=== PATIENT | female | born 1960 | race Caucasian/White ===

== ENCOUNTER 2019-08-12 17:00 | Emergency (ER) | payer OTHER ==
--- NOTE | 2019-08-12 17:23 | PDOC ---
History of Present Illness - General Chief Complaint: Lightheaded Stated Complaint: DIZZY EPISODE Time Seen by Provider: 08/12/19 17:23 History Source: Patient Exam Limitations: No Limitations - History of Present Illness Initial Comments: 08/12/19 18:01 59yF w PMHx low BP (100/60), palpitations presenting w sudden onset cold sweats , lightheaded, tunnel vision, heart palpitations while driving on highway towards [place] at 250pm today. Pulled over to side of road w symptom resolved , had 2nd presyncope episode short while after. Ate jen bar and drank water before presenting to ED. Also ran 6mi earlier today without drinking water. Never had these symptoms before. Has intermittent palpitations for past 8mo, scheduled stress test next week. Denies life stressors, LOC, head trauma, chest pain, SOB, n/v, headache. Past History - Past Medical History Allergies/Adverse Reactions: Allergies Allergy/AdvReac Type Severity Reaction Status Date / Time No Known Allergies Allergy Verified 08/12/19 17:19 Home Medications: Ambulatory Orders Cholecalciferol (Vitamin D3) [Vitamin D3] 2,000 unit PO DAILY 08/12/19 Cyanocobalamin [Vitamin B12 -] 1,000 mcg PO DAILY 08/12/19 Estrogens, Conjugated [Premarin] 0.3 mg PO DAILY 08/12/19 Fluoxetine HCl [Prozac] 20 mg PO DAILY 08/12/19 Progesterone, Micronized [Progesterone] 100 mg PO ASDIR 08/12/19 Sumatriptan Succinate 100 mg PO DAILY PRN 08/12/19 Review of Systems - Review of Systems Constitutional: No: Fever, Malaise HEENTM: Yes: Recent change in vision. No: Eye Pain Respiratory: No: Cough, Shortness of Breath Cardiac (ROS): Yes: Palpitations. No: Chest Pain ABD/GI: No: Abdominal Distended, Constipated, Diarrhea, Nausea, Vomiting : No: Burning, Dysuria Musculoskeletal: No: Back Pain, Joint Pain Integumentary: No: Bruising, Flushing Neurological: No: Headache, Numbness, Seizure Psychiatric: No: Anxiety, Depression Endocrine: No: Intolerance to Cold, Intolerance to Heat Hematologic/Lymphatic: No: Anemia, Blood Clots *Physical Exam - Physical Exam General Appearance: Yes: Nourished, Appropriately Dressed. No: Apparent Distress HEENT: positive: EOMI, JAIME, Normal Voice, Hearing Grossly Normal. negative: Scleral Icterus (R), Scleral Icterus (L) Respiratory/Chest: positive: Lungs Clear, Normal Breath Sounds. negative: Chest Tender, Respiratory Distress Cardiovascular: positive: Regular Rhythm, S1, S2, Bradycardia. 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 negative: Abnormal Cranial NS, Facial Droop, Numbness, Confused, Disoriented Medical Decision Making - Medical Decision Making 08/12/19 18:04 CXR clear lung hardin EKG sinus bradycardia, HR 49, QTc 449, TWI V1 --- 59yF w PMHx low BP (100/60), palpitations presenting w sudden onset cold sweats , lightheaded, tunnel vision, heart palpitations d/t vasovagal syncope (vagal symptoms) and dehydration. Low concern for hypoglycemia vs cardiogenic (no cardiac risk factors) Given 1L NS DC home w cards f/u pending labs Signed out to night team Discharge - Discharge Information Problems reviewed: Yes Clinical Impression/Diagnosis: Vasovagal syncope Condition: Improved Disposition: HOME - Admission No - Follow up/Referral - Patient Discharge Instructions Patient Printed Discharge Instructions: DI for Syncope in Adults (Fainting) Additional Instructions: Drink lots of water Follow up with your windows security analyst - Post Discharge Activity
[2019-08-12 17:31] VITALS: BP 127/58; PULSE 59; TEMP 98.4; BMI 19.7
[2019-08-12] MEDS ORDERED: SODIUM CHLORIDE 0.9% 500 ML INFUS.BAG IV ONE (18:00)
--- NOTE | 2019-08-12 18:56 | PDOC ---
Attending Attestation - Resident Resident Name: Louis Larose - ED Attending Attestation I have performed the following: I have examined & evaluated the patient, The case was reviewed & discussed with the resident, I agree w/resident's findings & plan, Exceptions are as noted - HPI HPI: 08/12/19 18:51 While driving to [place] this afternoon suddenly experienced cold sweats, lightheadedness, tunnel vision, feeling that she was going to faint. Pulled off the road and symptoms resolved. They occurred again when she continued to drive, and she drove herself to the emergency room for evaluation. She is asymptomatic now There is a history of palpitations for which she is being evaluated by a barn hand. 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 Has never blacked out or had any chest pain or shortness of breath while she is exercising. Past medical history: Migraines, uses sumatriptan, no headaches recently. Fluoxetine for mood disorder. Conjugated estrogens. Progesterone. And vitamins. - Physicial Exam PE: 08/12/19 18:54 Physical exam: Vital signs normal. Afebrile. Alert and oriented no acute distress fully coherent without confusion. Entire physical and including complete neurological is normal. - Medical Decision Making 08/12/19 18:55 Assessment: Vasovagal presyncope, highly unlikely that this is an acute cardiac or neurological event Plan: EKG and enzymes, CBC and chemistries, observation and further evaluation depending on results.
[2019-08-12 19:00] LABS: BASO % 0.6 % (0-2.0); EOS % 1.1 % (0-4.5); HEMATOCRIT 42.6 % (32.4-45.2); HEMOGLOBIN 14.3 GM/dl (10.7-15.3); LYMPH % 16.4 % (8-40); MCH 33.7 pg (25.7-33.7); MCHC 33.5 g/dl (32.0-36.0); MEAN CELL VOLUME 100.7 fl (80-96); MEAN PLT VOLUME 8.5 fl (7.5-11.1); MONO % 6.4 % (3.8-10.2); NEUT % 75.5 % (42.8-82.8); PLATELET COUNT 258 K/MM3 (134-434); RBC 4.23 M/mm3 (3.60-5.2); RDW 13.3 % (11.6-15.6); WHITE BLOOD COUNT 4.7 K/mm3 (4.0-10.8)
[2019-08-12 19:08] LABS: ALBUMIN 4.4 g/dl (3.4-5.0); BILIRUBIN,TOTAL 0.8 mg/dl (0.2-1); CALCIUM 9.2 mg/dl (8.5-10); CREATININE 0.9 mg/dl (0.55-1.3); POTASSIUM 3.7 mmol/L (3.5-5.1); TOT PROT 6.9 g/dl (6.4-8.2)
--- NOTE | 2019-08-12 19:42 | PDOC ---
*Physical Exam - Vital Signs Last Vital Signs Temp Pulse Resp BP Pulse Ox 98.4 F 59 L 16 127/58 L 100 08/12/19 17:18 08/12/19 17:18 08/12/19 17:18 08/12/19 17:18 08/12/19 17:18 - Physical Exam 08/12/19 19:42 Vital signs normal, very well-appearing, ambulating comfortably in the emergency department, and daughter at bedside Heart is regular without ectopy on auscultation, 2+ pulses ED Treatment Course - LABORATORY CBC & Chemistry Diagram: 08/12/19 18:35 08/12/19 18:35 - ADDITIONAL ORDERS Additional order review: Laboratory Results 08/12/19 08/12/19 18:35 18:35 Sodium 137 Potassium 3.7 Chloride 101 Carbon Dioxide 26 Anion Gap 10 BUN 20.0 H Creatinine 0.9 Est GFR (CKD-EPI)AfAm 81.11 Est GFR (CKD-EPI)NonAf 69.99 Random Glucose 86 Calcium 9.2 Total Bilirubin 0.8 AST 34 ALT 30 Alkaline Phosphatase 43 L Creatine Kinase 210 H Troponin I < 0.03 Total Protein 6.9 Albumin 4.4 08/12/19 18:35 RBC 4.23 MCV 100.7 H MCHC 33.5 RDW 13.3 MPV 8.5 Neutrophils % 75.5 Lymphocytes % 16.4 Monocytes % 6.4 Eosinophils % 1.1 Basophils % 0.6 - Medications Given in the ED: ED Medications Discontinued Medications Generic Name Dose Route Start Last Admin Trade Name Freq PRN Reason Stop Dose Admin Sodium Chloride 1,000 ml 08/12/19 18:00 08/12/19 18:35 Normal Saline - IV 08/12/19 18:01 1,000 ml ONCE ONE Administration Medical Decision Making - Medical Decision Making 08/12/19 19:42 Received signout on this 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 Patient is under evaluation with a drivability technician for history of intermittent palpitations, had a normal first visit and has a stress test scheduled next week. plan at signout was to follow-up labs and discharge if normal to scheduled cardiology follow-up. Labs are within normal limits including electrolytes and troponin. Chest x-ray shows an unclear density in the right upper lobe, the findings were given to the patient, she has no risk factors for lung disease, she was told to receive a follow-up x-ray with her PCP. Discussed vasovagal versus arrhythmia near syncope. Patient has her stress test scheduled next week, encouraged to have Holter monitoring after that to assess for frequency of ectopic beats or arrhythmia. Patient agrees with plan, has EKG and chest x-ray copies, understands return criteria. Discharge - Discharge Information Problems reviewed: Yes Clinical Impression/Diagnosis: Vasovagal syncope, Heart palpitations Condition: Improved Disposition: HOME - Follow up/Referral - Patient Discharge Instructions Patient Printed Discharge Instructions: DI for Syncope in Adults (Fainting), DI for Palpitations Additional Instructions: Activity as tolerated. Stay hydrated. Blood tests and an EKG showed no acute abnormalities. As discussed, this may have been a near fainting spell. This could be caused by several things, including vasovagal syncope and heart arrhythmias. As discussed, after your stress test, it is recommended that you have an echocardiogram and Holter monitoring to further evaluate the frequency of palpitations and whether they cause any persistent arrhythmia. Your drivability technician should be able to arrange this for you. Also as discussed, there was a vague chest x-ray finding. Recommend follow-up chest x-ray with your primary care physician, bring the findings of this x-ray with you. Continue your medications as previously prescribed by your physician. You should follow up with your primary doctor and cardiology at the [facility] as soon as possible regarding today's emergency department visit. Return to the emergency department for any new or concerning symptoms, particularly persistent palpitations, chest pain or difficulty breathing, lightheadedness or passing out, fevers or chills. - Post Discharge Activity
--- NOTE | 2019-08-13 15:16 | EKG ---
Test Reason : Blood Pressure : / mmHG Vent. Rate : 049 BPM Atrial Rate : 049 BPM P-R Int : 140 ms QRS Dur : 086 ms QT Int : 498 ms P-R-T Axes : 078 054 058 degrees QTc Int : 449 ms SINUS BRADYCARDIA POSSIBLE LEFT ATRIAL ENLARGEMENT BORDERLINE ECG NO PREVIOUS ECGS AVAILABLE Confirmed by BIPIN ROMAN, MARGARITA ([id number]) on 08/13/2019 3:16:35 PM Referred By: MD PARISI Confirmed By:MARGARITA VOSS MD
== END 2019-08-12 20:01 | disposition home or self-care (01) ==
LOC: SUPCPDRO 17:00 → FER 17:00
DX: R42 Dizziness and giddiness (principal); I95.9 Hypotension, unspecified
CPT/HCPCS: 36415; 71046-TC-FY; 80053; 82550; 82553; 84484; 85025; 93005; 99285-25